=== PATIENT | female | born 1995 | race Caucasian/White ===

== ENCOUNTER 2024-05-07 00:49 | Emergency (ER) | payer BC ==
[~2024-05-07] VITALS: Ht 152.4 cm; Wt 54.4 kg
[2024-05-07] MEDS ORDERED: DEXCOM G7 SENS1 EACH MC (01:25)
[2024-05-07] MEDS ORDERED: LISINOPRIL10 M1 PO (01:26)
[2024-05-07] MEDS ORDERED: TRESIBA FL100 UNIT/1 SQ (01:27)
[2024-05-07] MEDS ORDERED: NOVOLOG FL100 UNIT/2 SQ (01:27)
[2024-05-07] MEDS ORDERED: SODIUM BICARBO650 MG PO (01:28)
[2024-05-07] MEDS ORDERED: ROSUVASTATIN CA20 MG PO (01:28)
[2024-05-07] MEDS ORDERED: TRAMADOL HCL50 MG PO (02:36)
== END 2024-05-07 02:42 | disposition home or self-care (01) ==
LOC: ED 00:49
DX: S82.252A Displaced comminuted fracture of shaft of left tibia, initial encounter for closed fracture (principal); E10.9 Type 1 diabetes mellitus without complications; I10 Essential (primary) hypertension; E78.5 Hyperlipidemia, unspecified; Z88.0 Allergy status to penicillin; Z88.1 Allergy status to other antibiotic agents; W10.9XXA Fall (on) (from) unspecified stairs and steps, initial encounter; Y93.01 Activity, walking, marching and hiking; Y92.89 Other specified places as the place of occurrence of the external cause; Y99.8 Other external cause status